=== PATIENT | female | born 1975 | race African-American/Black ===

== ENCOUNTER 2019-10-21 15:28 | Emergency (ER) | payer OTHER, SELFPAY ==
--- NOTE | ~2019-10-21 | CT_ITS ---
EXAMINATION: CT LE RT wo con EXAM DATE: 10/21/2019 18:12 INDICATION: Possible fibular fracture. TECHNIQUE: Spiral CT LE RT wo con was performed without contrast. Axial, coronal and sagittal image s were reviewed. The dose-length product (DLP) for this examination was 402.42 mGy-cm. The exposure was tailored according to patient size (auto mA exposure control), and iterative reconstruction (ASI R) was used as additional dose reduction technique. There is no prior study for comparison. FINDINGS: There are no acute right ankle fractures or dislocations identified. There is no subcutane ous gas. There is soft tissue swelling over the ankle. There are no radiopaque foreign bodies. . T he ankle mortise appears intact. Hindfoot is also unremarkable. IMPRESSION: 1. Right ankle CT exam without acute osseous findings. 2. Soft tissue swelling. Reviewed, dictated and finalized at location A.
--- NOTE | ~2019-10-21 | XR_ITS ---
EXAMINATION: XR ankle RT min 3V EXAM DATE: 10/21/2019 17:34 INDICATION: Initial encounter following injury, with pain of the left ankle. TECHNIQUE: Right ankle frontal, lateral and oblique projections obtained and reviewed. There is no p rior study for comparison. FINDINGS: The right ankle mortise appears intact. There is subtle lucency through the right distal fibular metaphysis extending into the superolateral aspect of the mortise, possible acute closed pos ttraumatic nondisplaced fibular fracture. Consider CT for further evaluation. There is swelling overl sandra the ankle medially, laterally and anteriorly. IMPRESSION: Possible acute nondisplaced right fibular distal metaphyseal fracture; consider CT for f urther evaluation. Reviewed, dictated and finalized at location A. IMPRESSION: Possible acute nondisplaced right fibular distal metaphyseal fract ure; consider CT for further evaluation.
--- NOTE | ~2019-10-21 | US_ITS ---
EXAMINATION: US venous doppler LE RT EXAM DATE: 10/21/2019 16:34 INDICATION: Right leg swelling. TECHNIQUE: Multiple grayscale, color flow and Doppler images of the right lower extremity deep venous system were obtained and reviewed. There is no prior study for comparison. FINDINGS: The right common femoral, femoral and profunda veins demonstrate normal color flow, respira tory variation, augmentation and compressibility. Compressibility, color flow confirmed within the r ight popliteal, posterior tibial, peroneal, and greater saphenous veins. IMPRESSION: 1. No right lower extremity deep venous thrombosis. Reviewed, dictated and finalized at location A.
[2019-10-21 15:30] VITALS: BP 131/97; PULSE 78; RESP 14; TEMP 37; O2SAT 100
--- NOTE | 2019-10-21 21:24 | ED.LOWEXIN ---
HPI - Extremity Injury (Lower) General Chief Complaint: Extremity Injury, Lower Stated Complaint: R leg pain/swelling Time Seen by Provider: 10/21/19 15:38 Source: patient Mode of arrival: ambulatory Limitations: no limitations History of Present Illness HPI Narrative: Patient presents for evaluation of swelling and discomfort to the right lateral aspect of her right ankle for the past few days. Patient states she has not had any direct trauma to the area recently but as a child she did fracture the ankle. Patient states that she has been taking naproxen prescribed by her primary care provider but she has still had discomfort and swelling to the area so she wanted to have it evaluated to make sure that there was nothing acute. Patient states that she was also concerned for possible DVT as she has had a PE in the past. Patient states that she does smoke. Patient denies cancer or estrogen therapy. Patient denies shortness of breath, chest pain, nausea, vomiting, diarrhea, fever, chills or any other symptoms. Related Data Allergies Allergy/AdvReac Type Severity Reaction Status Date / Time No Known Allergies Allergy Verified 10/21/19 15:39 Review of Systems Review of Systems: Narrative: CONSTITUTIONAL: Denies fever, chills, or sweats. EYES: Denies visual changes, redness, or discharge. ENT: Denies rhinorrhea, congestion, sore throat, or otalgia. CARDIOVASCULAR: Denies chest pain, palpitations, or edema. RESPIRATORY: Denies cough or dyspnea. GASTROINTESTINAL: Denies abdominal pain, nausea, vomiting, or diarrhea. GENITOURINARY: Denies dysuria or hematuria. SKIN: Denies rash or itching. MUSCULOSKELETAL: Pain and swelling to right ankle denies back pain or myalgia. NEUROLOGIC: Denies headache, numbness, dizziness, or weakness. PSYCHIATRIC: Denies anxiety or depression. PMFSH Social History Social History Gender identity (if verbalized by the patient): Female Exam Narrative: Exam Narrative: GENERAL: Well-appearing, well-nourished, and in no acute distress. HEAD: Normocephalic, atraumatic. EYES: PERRLA and EOMI. ENT: Nares clear, no rhinorrhea or epistaxis. Mucous membranes moist. NECK: Supple. No adenopathy or masses. No carotid bruits or JVD CHEST: Clear to auscultation. No respiratory distress. No wheezes rales or rhonchi HEART: Regular rate and rhythm. ABDOMEN: Soft, nontender, nondistended, normal active bowel sounds. EXTREMITIES: Normal range of motion. Swelling with mild edema noted to the lateral aspect of right ankle. There is no swelling appreciated to the left calf or erythema or ecchymosis appreciated. There is tenderness with palpation of the swelling area. There are no open wounds. There is pain with flexion and extension. Sensation and motor function intact to the lower extremities. SKIN: Warm, dry, no rash. NEURO: No focal deficits. Alert and oriented x3. PSYCH: Normal mood and affect. Course Vital Signs Vital signs: Vital Signs Temperature 98.6 F 10/21/19 15:30 Pulse Rate 78 10/21/19 15:30 Respiratory Rate 14 10/21/19 15:30 Blood Pressure 131/97 H 10/21/19 15:30 Pulse Oximetry 100 10/21/19 15:30 Temperature 98.6 F 10/21/19 15:30 Pulse Rate 78 10/21/19 15:30 Respiratory Rate 14 10/21/19 15:30 Blood Pressure 131/97 H 10/21/19 15:30 Pulse Oximetry 100 10/21/19 15:30 MDM - Extremity Injury (Lower) MDM Narrative Medical decision making narrative: Marshall wrap the area for additional support. Patient instructed to elevate and apply cool compress to decrease swelling. There is not sign of gout or septic joint. Patient states she has had this issue on and off for years but there is not extreme heat or erythema to the site. Patient also does not have any fevers. Patient instructed to follow-up with primary care for reevaluation and further management. Patient also informed that she could follow-up with immunology specialist for additional recommendations and possible
== END 2019-10-21 18:46 | disposition home or self-care (01) ==
PROVIDERS: Emergency Provider Emergency Medicine; PCP Internal Medicine Infectious Disease
DX: M25.471 Effusion, right ankle (principal); M25.571 Pain in right ankle and joints of right foot
CPT/HCPCS: 73610; 73700; 93971; 99284